=== PATIENT | male | born 1965 | race Caucasian/White ===

== ENCOUNTER → 2019-01-14 | Outpatient (CLI) | payer OTHER ==
--- NOTE | 2019-01-14 16:39 | KCIC ---
EXAM: Orbits 2 views. HISTORY: Screening prior to MRI. COMPARISON: None. FINDINGS: No intraorbital or intracranial metallic object is identified. There are orthopedic fixation plates along the medial ramey of both maxillary sinuses. The paranasal sinuses appear aerated is technique. IMPRESSION: 1. No evidence of metallic intraorbital foreign body. Electronically signed by: Elliot Cortez MD (01/14/2019 4:37 PM) [facility]
== END | disposition home or self-care (01) ==
LOC: KCIC MRI 13:37
PROVIDERS: ATTEND Nurse Practitioner Family
DX: Z01.00 Encounter for examination of eyes and vision without abnormal findings (principal)
CPT/HCPCS: 70030